=== PATIENT | male | born 1980 | race Caucasian/White ===

== ENCOUNTER 2017-08-09 01:12 | Emergency (ER) | payer OTHER ==
[~2017-08-09] VITALS: Ht 182.9 cm; Wt 72.6 kg
[2017-08-09 01:19] VITALS: BP 128/81
[2017-08-09] MEDS ORDERED: TDAP [DIPH/PERTUSSIS/TET] 0.5 ML VIAL IM ONE ×2 (01:30→01:57)
[2017-08-09] MEDS ORDERED: HYDROCODONE/APAP 5/325MG 1 EACH TABLET ONE (01:56)
[2017-08-09] MEDS ORDERED: HYDROCODONE/APAP 5/325MG 1 EACH TABLET PO ONE (02:00)
--- NOTE | 2017-08-09 02:01 | NUR ---
pt refuse tdap. pt states "i had the shot 2 yrs ago or so".
== END 2017-08-09 02:03 | disposition home or self-care (01) ==
LOC: ER 01:15
DX: S01.01XA Laceration without foreign body of scalp, initial encounter (principal); S16.1XXA Strain of muscle, fascia and tendon at neck level, initial encounter; V43.52XA Car driver injured in collision with other type car in traffic accident, initial encounter; Y93.89 Activity, other specified; Y92.410 Unspecified street and highway as the place of occurrence of the external cause; Y99.0 Civilian activity done for income or pay
CPT/HCPCS: 90715; A4606; A6402; Z7610

== ENCOUNTER 2017-08-23 18:40 | Emergency (ER) | payer OTHER ==
[~2017-08-23] VITALS: Ht 177.8 cm; Wt 72.6 kg
[2017-08-23 18:46] VITALS: BP 126/67
== END 2017-08-23 18:58 | disposition home or self-care (01) ==
LOC: ER 18:43
DX: S01.01XD Laceration without foreign body of scalp, subsequent encounter (principal); X58.XXXD Exposure to other specified factors, subsequent encounter
CPT/HCPCS: A4606; Z7502; Z7610

== ENCOUNTER 2017-10-05 02:49 | Emergency (ER) | payer OTHER ==
[~2017-10-05] VITALS: Ht 182.9 cm; Wt 77.1 kg
--- NOTE | 2017-10-05 03:00 | NUR ---
BIBSELF C/O POSSIBLE ABSCESS ON RIGHT SIDE OF NECK X 2 DAYS S/P "INJECTING HEROINE ON RIGHT SIDE OF NECK". PT DENIES N/V. -DIFFICULTY SWALLOWING. SWELLING NOTED ON RIGHT SIDE OF NECK. NO DRAINAGE NOTED. PT IS AAOX4. VSS. RESP EVEN AND UNLABORED. NO S/S OF ACUTE DISTRESS NOTED. PT PLACED ON MONITOR AND POX. FAMILY MEMBER BEDSIDE. BEDSIDE FOR EVAL.
[2017-10-05 03:48] LABS: BASOPHILS # (AUTO) 0.1 /CMM (0.0-0.2); BASOPHILS % (AUTO) 0.5 % (0.0-2.0); EOSINOPHILS % (AUTO) 1.5 % (0.0-6.0); HEMATOCRIT 39 % (39-51); LYMPHOCYTES # (AUTO) 2.8 /CMM (0.8-4.8); LYMPHOCYTES % (AUTO) 22.1 % (20.0-44.0); MEAN CORPUSCULAR HGB CONC 33 g/dl (31.0-36.0); MEAN CORPUSCULAR VOLUME 86 fL (80-96); MONOCYTES # (AUTO) 0.9 /CMM (0.1-1.30); NEUTROPHILS # (AUTO) 8.9 /CMM (1.8-8.9); NEUTROPHILS % (AUTO) 68.9 % (43.0-81.0); PLATELET COUNT (AUTO) 322 /CMM (150-450); RDW COEFFICIENT OF VARIATION 13.7 (11.5-15.0); RED BLOOD CELL COUNT(AUTO) 4.56 MIL/uL (4.5-6.0); WHITE BLOOD COUNT (AUTO) 12.9 K/uL (4.3-11.0)
[2017-10-05] MEDS ORDERED: CT SWABBABLE VALVE TRANS SET 1 EA INFUS.SET MC ONE (03:56)
[2017-10-05] MEDS ORDERED: IOHEXOL-300 100 ML VIAL IV ONE (03:56)
[2017-10-05] MEDS ORDERED: IV NS 0.9% 500 ML IV ONE (03:57)
[2017-10-05] MEDS ORDERED: PIPERACILLIN /TAZOBACTAM 3.375 G in IV D5W 50 ML IV ONE (04:00)
[2017-10-05] MEDS ORDERED: VANCOMYCIN 1 GM in IV D5W 250 ML IV ONE (04:00)
[2017-10-05] MEDS ORDERED: VANCOMYCIN 1 GM VIAL ONE (04:01)
[2017-10-05] MEDS ORDERED: PIPERACILLIN /TAZOBACTAM 3.375 G VIAL IV ONE (04:01)
[2017-10-05 04:10] LABS: ALBUMIN 2.9 g/dL (3.4-5.0); BILIRUBIN,TOTAL 0.3 mg/dL (0.2-1.0); CALCIUM, SERUM 8.3 mg/dL (8.5-10.1); CREATININE 1.1 mg/dL (0.6-1.3); POTASSIUM 3.5 mmol/L (3.5-5.1); TOTAL PROTEIN, SERUM 7.2 g/dL (6.4-8.2)
--- NOTE | 2017-10-05 04:41 | NUR ---
PT TO CT
--- NOTE | 2017-10-05 04:55 | NUR ---
PT BACK FROM CT
--- NOTE | 2017-10-05 05:56 | NUR ---
IV removed. Catheter intact and site benign. Pressure and 4x4 applied to site. No bleeding noted.Patient does not wish to proceed with medical care recommended by ([facility] ). Patient given information related to possible complications, up to and including , which could occur as a result of leaving the hospital at this time. Patient verbalizes understanding of risks involved due to leaving against medical advice. Patient has signed AMA form. VSS UPON DISCHARGE
[2017-10-05 05:59] VITALS: BP 136/66
== END 2017-10-05 06:00 | disposition left against medical advice (07) ==
LOC: ER 02:51
DX: L02.11 Cutaneous abscess of neck (principal)
CPT/HCPCS: 36415; 70491; 80048; 80076; 85025; 96365; 96367; 99285; A4606; J2543 ×2; J3370; J7040; J7060; Q9967; Z7610

== ENCOUNTER 2017-12-23 16:18 | Emergency (ER) | payer OTHER ==
[~2017-12-23] VITALS: Ht 182.9 cm; Wt 75.7 kg
[2017-12-23 16:44] VITALS: BP 134/77
== END 2017-12-23 18:13 | disposition home or self-care (01) ==
LOC: ER 16:19
DX: L03.113 Cellulitis of right upper limb (principal); F15.20 Other stimulant dependence, uncomplicated
CPT/HCPCS: 99283; A4606; Z7610

== ENCOUNTER 2018-03-28 12:14 | Emergency (ER) | payer OTHER ==
[~2018-03-28] VITALS: Ht 182.9 cm; Wt 77.1 kg
[2018-03-28 12:14] VITALS: BP 131/82
--- NOTE | 2018-03-28 12:35 | NUR ---
Patient discharged to home in stable condition. Written and verbal after care instructions given. Patient verbalizes understanding of instruction.
== END 2018-03-28 12:34 | disposition home or self-care (01) ==
LOC: ER 12:18
DX: L02.511 Cutaneous abscess of right hand (principal)
CPT/HCPCS: 99283; A4606; Z7610

== ENCOUNTER 2019-01-24 10:33 | Emergency (ER) | payer OTHER ==
[~2019-01-24] VITALS: Ht 180.3 cm; Wt 71.2 kg
[2019-01-24 10:37] VITALS: BP 126/74
--- NOTE | 2019-01-24 10:59 | NUR ---
PATIENT AWAKE ALERT NON DISTRESS C/C LFA PAIN REDNESS AND EDEMA STATED INSECT BITES ,MD @ BEDSIDE
--- NOTE | 2019-01-24 11:20 | NUR ---
Patient discharged to home in stable condition. Written and verbal after care instructions given. Patient verbalizes understanding of instruction.
== END 2019-01-24 11:20 | disposition home or self-care (01) ==
LOC: ER 10:37
DX: L03.114 Cellulitis of left upper limb (principal); L02.414 Cutaneous abscess of left upper limb; F19.10 Other psychoactive substance abuse, uncomplicated